=== PATIENT | female | born 1960 | race Caucasian/White ===

== ENCOUNTER 2017-09-04 00:28 | Inpatient (IN) | payer BC, MEDICAID ==
[2017-09-04 00:45] VITALS: BMI 28.3
[2017-09-04] MEDS ORDERED: Albuterol-Ipratrop 3 mg / 0.5 (3 ml) UD IH STA (00:48)
[2017-09-04] MEDS ORDERED: Sodium Chloride 0.9% 1,000 ML IV STA ×2 (00:48→03:09)
[2017-09-04] MEDS ORDERED: Magnesium Sulfate 2 GM in Sodium Chloride 0.9% 100 ML IVPB ONE (00:48)
[2017-09-04] MEDS ORDERED: Albuterol 0.083% Inhal Sol (2.5 mg/3 mL) UD INH STA (00:48)
--- NOTE | 2017-09-04 01:01 | ED PDOC ---
Arrival/HPI - General Chief Complaint: Shortness Of Breath Time Seen by Provider: 09/04/17 00:40 Historian: Patient - History of Present Illness Narrative History of Present Illness (Text): 09/04/17 00:53 A 57 year old female, whose past medical history includes asthma, presents to the emergency department complaining of 1 week duration shortness of breath. The patient states that she has been using her Albuterol inhaler, but it has not relieved her symptoms. She notes that she has been coughing with associated white sputum. The patient denies fevers, chills, headache, dizziness, chest pain , dyspnea on exertion, cough, abdominal pain, nausea, vomiting, diarrhea, back pain, neck pain, urinary/bowel changes, or any other complaint. PMD: Dr. Islas Time/Duration: 1 week Symptom Onset: Sudden Symptom Course: Unchanged Activities at Onset: Rest, Light Context: Home Past Medical History - Provider Review Nursing Documentation Reviewed: Yes - Infectious Disease Hx of Infectious Diseases: None - Tetanus Immunization Tetanus Immunization: Unknown - Past Medical History Past Medical History: No Previous - Cardiac Hx Cardiac Disorders: No - Pulmonary Hx Respiratory Disorders: Yes Hx Asthma: Yes Hx Bronchitis: Yes (05-12-16) - Neurological Hx Neurological Disorder: No - HEENT Hx HEENT Disorder: Yes (WEARS RX GLASSES) - Renal Hx Renal Disorder: No - Endocrine/Metabolic Hx Endocrine Disorders: No - Hematological/Oncological Hx Blood Disorders: No - Integumentary Hx Dermatological Disorder: No - Musculoskeletal/Rheumatological Hx Musculoskeletal Disorders: No Hx Falls: No - Gastrointestinal Hx Gastrointestinal Disorders: Yes Hx Diverticulitis: Yes Hx Gastroesophageal Reflux: Yes (CHOLECYSTECTOMY) - Genitourinary/Gynecological Hx Genitourinary Disorders: Yes (HYSTERECTOMY) - Psychiatric Hx Psychophysiologic Disorder: Yes (SMOKES 2 CIG A DAY) Hx Emotional Abuse: No Hx Physical Abuse: No Hx Substance Use: No - Surgical History Hx Appendectomy: Yes Hx Cholecystectomy: Yes Hx Hysterectomy: Yes - Anesthesia Hx Anesthesia Reactions: No Hx Malignant Hyperthermia: No - Suicidal Assessment Feels Threatened In Home Enviroment: No Family/Social History - Physician Review Nursing Documentation Reviewed: Yes Family/Social History: No Known Family HX Smoking Status: Current Some Days Smoker Hx Alcohol Use: No Hx Substance Use: No Allergies/Home Meds Allergies/Adverse Reactions: Allergies No Known Allergies Allergy (Verified 09/04/17 00:41) Home Medications: Home Meds Medication Instructions Recorded Confirmed Albuterol HFA [Ventolin HFA 90 1 puff IH Q6 PRN 09/04/17 09/04/17 mcg/actuation (8 g)] No Known Home Med 09/04/17 09/04/17 Review of Systems - Physician Review All systems were reviewed & negative as marked: Yes - Review of Systems Constitutional: absent: Fevers, Night Sweats Respiratory: SOB, Cough, Sputum Cardiovascular: absent: Chest Pain, GONSALEZ Gastrointestinal: absent: Abdominal Pain, Constipation, Diarrhea, Nausea, Vomiting Genitourinary Female: absent: Urine Output Changes Musculoskeletal: absent: Back Pain, Neck Pain Neurological: absent: Headache, Dizziness Physical Exam Vital Signs Reviewed: Yes Vital Signs Temp Pulse Resp BP Pulse Ox 09/04/17 04:22 107 H 18 134/71 100 09/04/17 03:03 109 H 18 142/75 100 09/04/17 02:00 18 98 09/04/17 00:45 98 F 117 H 22 165/91 H 96 Temperature: Afebrile Blood Pressure: Hypertensive Pulse: Tachycardic Respiratory Rate: Normal Appearance: Positive for: Well-Appearing, Non-Toxic, Comfortable Pain Distress: None Mental Status: Positive for: Alert and Oriented X 3 - Systems Exam Head: Present: Atraumatic, Normocephalic Pupils: Present: PERRL Extroacular Muscles: Present: EOMI Conjunctiva: Present: Normal Mouth: Present: Moist Mucous Membranes Pharnyx: Present: Muffled/Hoarse Voice Neck: Present: Normal Range of Motion Respiratory/Chest: Present: Wheezes Cardiovascular: Present: Regular Rate and Rhythm, Normal S1, S2. No: Murmurs Abdomen: Present: Normal Bowel Sounds. No: Tenderness, Distention, Peritoneal Signs Back: Present: Normal Inspection Upper Extremity: Present: Normal Inspection. No: Cyanosis, Edema Lower Extremity: Present: Normal Inspection. No: Edema Neurological: Present: GCS=15, CN II-XII Intact, Speech Normal Skin: Present: Warm, Dry, Normal Color. No: Rashes Psychiatric: Present: Alert, Oriented x 3, Normal Insight, Normal Concentration Medical Decision Making ED Course and Treatment: 09/04/17 01:02 Impression: A 57 year old female presents to the emergency department complaining of shortness of breath and cough for 1 week. Plan: -- Chest X-ray -- Blood Culture -- Labs -- Albuterol, Duoneb, Magnesium Sulfate, SOLU-Medrol, IV Fluids -- Reassess and disposition Progress Notes: EKG: Ordered, reviewed, and independently interpreted the EKG. Rate : 109 BPM Rhythm : Sinus Tachycardia - Lab Interpretations Lab Results: 09/04/17 02:00 09/04/17 02:00 Lab Results 09/04/17 02:10: Influenza Typ A,B (EIA) Negative for flu a/b 09/04/17 02:00: Sodium 141, Chloride 102, Potassium 3.6, Carbon Dioxide 24, Anion Gap 19, BUN 13, Creatinine 1.0, Est GFR ( Amer) > 60, Est GFR (Non- Af Amer) 57, Random Glucose 117 H, Calcium 10.1, Total Bilirubin 0.6, AST 30, ALT 43, Alkaline Phosphatase 95, Lactate Dehydrogenase 764 H, Total Creatine Kinase 437 H, CK-MB (CK-2) 3.1, CK-MB (CK-2) % Cancelled, Troponin I < 0.01, Total Protein 7.8, Albumin 4.6, Globulin 3.2, Albumin/Globulin Ratio 1.4 09/04/17 02:00: pO2 58 H, VBG pH 7.27 L, VBG pCO2 55.0, VBG HCO3 25.3, VBG Total CO2 27.0, VBG O2 Sat (Calc) 88.8 H, VBG Base Excess -2.5 L, VBG Potassium 3.9, Sodium 138.0, Chloride 102.0, Glucose 123 H, Lactate 2.1, FiO2 21.0, Venous Blood Potassium 3.9 09/04/17 02:00: WBC 11.4 H D, RBC 4.68, Hgb 12.6, Hct 39.2, MCV 83.8, MCH 26.9, MCHC 32.1, RDW 16.0 H, Plt Count 269, MPV 10.8, Gran % 72.9 H, Lymph % (Auto) 16.3 L, Tillman % (Auto) 5.2, Eos % (Auto) 5.2 H, Baso % (Auto) 0.4, Gran # 8.29 H , Lymph # (Auto) 1.9, Tillman # (Auto) 0.6, Eos # (Auto) 0.6, Baso # (Auto) 0.04 I have reviewed the lab results: Yes - RAD Interpretation Radiology Orders: 09/04/17 00:48 CHEST TWO VIEWS (PA/LAT) [RAD] Stat - Medication Orders Current Medication Orders: Albuterol Sulfate (Albuterol 0.083% Inhal Hattie (2.5 Mg/3 Ml) Ud) 2.5 mg IH Q2H KLAUDIA Last Admin: 09/04/17 04:12 Dose: 2.5 mg Sodium Chloride (Sodium Chloride 0.9%) 1,000 mls @ 100 mls/hr IV .Q10H KLAUDIA Discontinued Medications Albuterol Sulfate (Albuterol 0.083% Inhal Hattie (2.5 Mg/3 Ml) Ud) 5 mg INH STAT STA Stop: 09/04/17 00:49 Last Admin: 09/04/17 01:00 Dose: 5 mg Albuterol/Ipratropium (Duoneb 3 Mg/0.5 Mg (3 Ml) Ud) 3 ml IH STAT STA Stop: 09/04/17 00:49 Last Admin: 09/04/17 01:00 Dose: 3 ml Magnesium Sulfate 2 gm/ Sodium (Chloride) 104 mls @ 102 mls/hr IVPB ONCE ONE Stop: 09/04/17 01:49 Last Admin: 09/04/17 02:00 Dose: 102 mls/hr eMAR Start Stop Document 09/04/17 02:00 AD (Rec: 09/04/17 02:23 AD [id number]) Intravenous Solution Start Date 09/04/17 Start Time 02:00 Sodium Chloride (Sodium Chloride 0.9%) 1,000 mls @ 999 mls/hr IV .Q1H1M STA Stop: 09/04/17 01:48 Last Admin: 09/04/17 02:00 Dose: 999 mls/hr eMAR Start Stop Document 09/04/17 02:00 AD (Rec: 09/04/17 02:23 AD [id number]) Intravenous Solution Start Date 09/04/17 Start Time 02:00 Ceftriaxone Sodium (Rocephin 1 Gram Ivpb) 1 gm in 100 mls @ 200 mls/hr IVPB STAT STA PRN Reason: Protocol Stop: 09/04/17 03:38 Last Admin: 09/04/17 03:30 Dose: 200 mls/hr eMAR Start Stop Document 09/04/17 03:30 AD (Rec: 09/04/17 03:34 AD [id number]) Intravenous Solution Start Date 09/04/17 Start Time 03:30 Sodium Chloride (Sodium Chloride 0.9%) 1,000 mls @ 999 mls/hr IV .Q1H1M STA Stop: 09/04/17 04:09 Last Admin: 09/04/17 03:34 Dose: 999 mls/hr eMAR Start Stop Document 09/04/17 03:34 AD (Rec: 09/04/17 03:34 AD [id number]) Intravenous Solution Start Date 09/04/17 Start Time 03:30 Azithromycin (Zithromax 500mg In Ns) 500 mg in 250 mls @ 167 mls/hr IVPB STAT STA PRN Reason: Protocol Stop: 09/04/17 04:38 Last Admin: 09/04/17 04:06 Dose: 167 mls/hr eMAR Start Stop Document 09/04/17 04:06 AD (Rec: 09/04/17 04:07 AD [id number]) Intravenous Solution Start Date 09/04/17 Start Time 04:07 Methylprednisolone (Solu-Medrol) 125 mg IVP STAT STA Stop: 09/04/17 00:49 Last Admin: 09/04/17 02:00 Dose: 125 mg IVP Administration Document 09/04/17 02:00 AD (Rec: 09/04/17 02:24 AD [id number]) Charges for Administration # of IVP Administrations 1 Oxycodone/Acetaminophen (Percocet 5/325 Mg Tab) 1 tab PO STAT STA Stop: 09/04/17 02:09 Last Admin: 09/04/17 02:24 Dose: 1 tab MAR Pain Assessment Document 09/04/17 02:24 AD (Rec: 09/04/17 02:24 AD [id number]) Pain Reassessment Is this a pain reassessment? No Presence of Pain Presence of Pain Yes Description Intensity of Pain at present 7 Pain Behavior Facial Grimacing - PA / JOB PLACEMENT SPECIALIST / Resident Statement MD/DO has reviewed & agrees with the documentation as recorded. - Scribe Statement The provider has reviewed the documentation as recorded by the Mike Wilson Provider Scribe Attestation: All medical record entries made by the Scribe were at my direction and personally dictated by me. I have reviewed the chart and agree that the record accurately reflects my personal performance of the history, physical exam, medical decision making, and the department course for this patient. I have also personally directed, reviewed, and agree with the discharge instructions and disposition. Disposition/Present on Arrival - Present on Arrival Any Indicators Present on Arrival: No History of DVT/PE: No History of Uncontrolled Diabetes: No Urinary Catheter: No History of Decub. Ulcer: No History Surgical Site Infection Following: None - Disposition Have Diagnosis and Disposition been Completed?: Yes Diagnosis: Sepsis, Pneumonia, Bronchospasm with bronchitis, acute Disposition: HOSPITALIZED Disposition Time: 03:00 Patient Plan: Admission Condition: IMPROVED
[2017-09-04] MEDS ORDERED: Oxycodone/Acetaminophen 5/325 mg Tab PO STA (02:08)
[2017-09-04 02:50] LABS: VENOUS BLOOD GAS BASE EXCESS -2.5 mmol/L (0.0-2.0); VENOUS BLOOD GAS PO2 58 mm/Hg (30-55); VENOUS BLOOD PH 7.27 (7.32-7.43)
[2017-09-04 03:06] LABS: ALB/GLOB RATIO 1.4 (1.1-1.8); ALBUMIN 4.6 g/dL (3.0-4.8); ALT/SGPT 43 U/L (7-56); AST/SGOT 30 U/L (14-36); BLOOD UREA NITROGEN 13 mg/dL (7-21); CALCIUM 10.1 mg/dL (8.4-10.5); GFR AFRICAN-AMERICAN > 60; GFR NON-AFRICAN AMERICAN 57
[2017-09-04] MEDS ORDERED: cefTRIAXone 1 gm 1 GM/100 ML BAG IVPB STA (03:09)
[2017-09-04] MEDS ORDERED: Azithromycin 500MG/NS 250ml 500 MG/250 ML BAG IVPB STA (03:09)
[2017-09-04 03:11] LABS: TROPONIN I < 0.01 ng/mL
[2017-09-04 03:22] LABS: BASO # 0.04 K/mm3 (0.0-2.0); BASO % 0.4 % (0.0-3.0); EOS # 0.6 (0.0-0.7); EOS % 5.2 % (1.5-5.0); GRAN # 8.29 (1.4-6.5); GRAN % 72.9 % (50.0-68.0); HEMOGLOBIN 12.6 g/dL (12.0-16.0); LYMPH # 1.9 (1.2-3.4); LYMPH % 16.3 % (22.0-35.0); MEAN CELL VOLUME 83.8 fl (80.0-105.0); MEAN CORPUSCULAR HEMOGLOBIN 26.9 pg (25.0-35.0); MEAN CORPUSCULAR HGB CONC 32.1 g/dl (31.0-37.0); MEAN PLATELET VOLUME 10.8 fl (7.0-11.0); MONO # 0.6 (0.1-0.6); MONO % 5.2 % (1.0-6.0); RBC 4.68 10^6/uL (3.5-6.1); WHITE BLOOD COUNT 11.4 10^3/ul (4.5-11.0)
[2017-09-04 03:23] LABS: CK-MB 3.1 ng/mL (0.0-3.6)
[2017-09-04] MEDS: Albuterol 0.083% Inhal Sol (2.5 mg/3 mL) UD IH SCH ×3 (04:12→10:22)
[2017-09-04] MEDS ORDERED: Sodium Chloride 0.9% 1,000 ML IV SCH (04:15)
[2017-09-04 04:32] LABS: PROTHROMBIN TIME 13.4 SECONDS (9.4-12.5)
[2017-09-04 04:33] LABS: INR 1.16 (0.93-1.08)
[2017-09-04] MEDS ORDERED: Oxycodone/Acetaminophen 5/325 mg Tab PO PRN (08:08)
[2017-09-04 08:35] LABS: VENOUS BLOOD GAS BASE EXCESS -2.6 mmol/L (0.0-2.0); VENOUS BLOOD GAS PO2 175 mm/Hg (30-55); VENOUS BLOOD PH 7.34 (7.32-7.43)
--- NOTE | 2017-09-04 08:43 | RAD ---
HISTORY: cough COMPARISON: No prior. TECHNIQUE: Chest PA and lateral FINDINGS: LUNGS: No active pulmonary disease. PLEURA: No significant pleural effusion identified. No pneumothorax apparent. CARDIOVASCULAR: Normal. OSSEOUS STRUCTURES: No significant abnormalities. VISUALIZED UPPER ABDOMEN: Normal. OTHER FINDINGS: None. IMPRESSION: No active disease.
[2017-09-04] MEDS ORDERED: Albuterol 0.083% Inhal Sol (2.5 mg/3 mL) UD INH PRN (11:07)
[2017-09-04] MEDS: MethylPREDNISolone 40 mg Vial IVP SCH ×2 (13:30→21:19)
[2017-09-04] MEDS ORDERED: Albuterol-Ipratrop 3 mg / 0.5 (3 ml) UD IH SCH (14:00)
[2017-09-04] MEDS: guaiFENesin-Codeine 100-10mg/5ml Syrup (5 ml) UD PO PRN (18:20)
[2017-09-04] MEDS: Albuterol-Ipratrop 3 mg / 0.5 (3 ml) UD IH PRN ×2 (18:30→21:22)
--- NOTE | 2017-09-04 23:47 | CARD ---
APPROVED REPORT EKG Measurement Heart [id number] <Conclusion> Sinus tachycardia Otherwise normal ECG
[2017-09-05] MEDS: Pantoprazole 40 mg EC Tab PO SCH (05:16)
[2017-09-05] MEDS: MethylPREDNISolone 40 mg Vial IVP SCH ×3 (05:16→22:26)
--- NOTE | 2017-09-05 06:28 | HP ---
HISTORY OF PRESENT ILLNESS: The patient is a 57-year-old came to Emergency Room because of increasing cough, congestion, shortness of breath. Patient states she had been sick for almost a week, but got worse and she could not catch her breath and she has been having low-grade fever. Denies any nausea or vomiting. Patient states she has been using her nebulizer very frequently with no significant relief. Complaint of productive cough for almost a week. Patient did have fever or chills earlier, but denies any fever or chills now. PAST MEDICAL HISTORY: Significant for asthma. PAST SURGICAL HISTORY: Significant for cholecystectomy, history of peptic ulcer disease, history of hysterectomy. SOCIAL HISTORY: She is , lives with her . She does have history of smoking cigar. She uses one cigar in holiday. MEDICATIONS AT HOME: She uses inhalers. Otherwise, she is not on any medication. REVIEW OF SYSTEMS: Significant for cough, congestion and shortness of breath. PHYSICAL EXAMINATION: GENERAL: She is awake, alert and oriented, communicative. VITAL SIGNS: She is afebrile, pulse 104, respirations 18, blood pressure 150/96. LUNGS: Soft rhonchi bilaterally, diffuse. HEART: S1, S2 audible. ABDOMEN: Soft, nontender. No rebound. No guarding. NEUROLOGIC: The patient is awake and alert, able to communicate. LABORATORY DATA: WBC is 11.4, hemoglobin 12.6, hematocrit 39, platelet of 269,000. PT 13.4, INR 1.16. Chemistry: Sodium 141, potassium 3.6, chloride 102, CO2 of 24, BUN 13, creatinine 1.0, blood sugar 117, CPK 437. Flu test is negative. ASSESSMENT: 1. Asthma exacerbation. 2. Asthmatic bronchitis 3. Tachycardia. PLAN: Discontinue her DuoNeb and start her on Xopenex since it is causing her tachycardia and jitteriness. We will monitor her respiratory status closely. We will follow up in the morning. Abhi Islas MD
[2017-09-05] MEDS: Levalbuterol 1.25 MG/3 ML Inhal Soln UD IH SCH ×2 (07:23→13:15)
--- NOTE | 2017-09-05 07:51 | CON ---
DATE: 09/04/2017 REFERRING PHYSICIAN: Dr. Islas. REASON FOR CONSULT: Cough, shortness of breath, history of chronic lung disease. HISTORY OF PRESENT ILLNESS: This is a 57-year-old female with past medical history significant for chronic obstructive lung disease; history of diverticulitis in the past, still on and off; occasionally smokes, comes into ER with cough and shortness of breath. In the ER, received IV and inhaled bronchodilator with some benefit of persistent symptoms. She was admitted, presently lying in the bed, has cough and shortness of breath. No hemoptysis. No hematemesis. No hematuria. No diarrhea. No leg pain or leg swelling. Admits to have loud snoring, daytime sleepy and tired. No nausea. No vomiting. No dysuria. PAST MEDICAL HISTORY: Chronic obstructive lung disease, history of diverticulitis, history of cholecystectomy. FAMILY HISTORY: No significant cardiopulmonary disease reported. SOCIAL HISTORY: Occasionally still smokes, denying any alcohol use. ALLERGIES: NONE KNOWN. MEDICATIONS: She is on albuterol and Atrovent nebulizer q. hour p.r.n. and q.6 hours round the clock, also on Percocet 5/325 one tablet q. 6 hours p.r.n. She is receiving Robitussin with Codeine 5 mL q.4 hours p.r.n., Rocephin 1 g IV daily, Singulair 10 mg daily, IV fluid normal saline 100 mL per hour, Solu-Medrol 40 mg q. hours, Xopenex inhaled q. 8 hours round the clock and Zithromax 500 mg daily. REVIEW OF SYSTEMS: No headache. No rhinitis. Admitted to have snoring, daytime sleepy and tired, cough, shortness of breath, wheezing. No nausea. No vomiting. No diarrhea. No leg pain or leg swelling. PHYSICAL EXAMINATION GENERAL: Lying in the bed, sleepy, arousable. VITAL SIGNS: Temperature is 98, heart rate is 104, respiratory rate is 20, blood pressure 150/96. Pulse ox of 92% on 2 L nasal cannula. HEENT: Small oral cavity. Crowded airway. Maxillary sinus, no tenderness. NECK: Supple. No JVD. LUNGS: Have prolonged expiratory phase with wheezing. HEART: S1 and S2. ABDOMEN: Soft, nontender. No organomegaly. EXTREMITIES: There is no edema. NEUROLOGIC: Sleepy, arousable. Follows simple commands. LABORATORY DATA: Shows hemoglobin 12.6, hematocrit 39.2, WBC 11.4, platelets 269,000. INR 1.16. VBG showed pH 7.34, pCO2 is 43, O2 175. Sodium 141, potassium 3.6, chloride 102, bicarbonate 24, BUN 13, creatinine 1.0, glucose 117 and calcium 10.1. AST 30, ALT 43 and alkaline phosphatase is 95. LDH 764. Troponin 0.01. Albumin is 4.6. Serology testing shows influenza A and B is negative. Chest x-ray done in the ER shows no active pulmonary disease. IMPRESSION AND PLAN: Exacerbation of chronic obstructive lung disease, may have a component of sleep apnea. Patient is urged to stop smoking. In old CAT scan, she had some scarring in the both lung navarro. Also, has a hiatal hernia. She has some scattered calcification consistent with prior exposure to granulomatous disease. Once she is improved, may not be a bad idea to do quantitative TB Gold test to assure her; she does not have a latent tuberculosis especially because of her asthma need of use of steroids. We will suggest getting full PFT upon discharge as outpatient. We will also suggest sleep study as outpatient. Gastric prophylaxis and deep venous thrombosis prophylaxis. Thank you and we will follow with you. Delicia Pace MD
[2017-09-05] MEDS: Enoxaparin 40 mg Syringe SC SCH (10:31)
[2017-09-05] MEDS: Azithromycin 500MG/NS 250ml 500 MG/250 ML BAG IVPB SCH (10:32)
[2017-09-05] MEDS: cefTRIAXone 1 gm 1 GM/100 ML BAG IVPB SCH (10:32)
--- NOTE | 2017-09-05 15:13 | PN ---
DATE: REFERRING PHYSICIAN: Dr. Islas. SUBJECTIVE: She is lying in the bed, head at 45 degrees. Night was unremarkable. Feels a little better. Still have cough, clear sputum. No nausea. No vomiting. No diarrhea. No leg pain, leg swelling. OBJECTIVE GENERAL: In no acute distress. VITAL SIGNS: Temperature is 98, heart rate is 94, respiratory rate is 18, blood pressure 124/73, pulse ox 97% on room air. HEENT: Moist mucous membranes. Small oral cavity. Crowded airway. Mallampati score is IV. NECK: Supple, no JVD. LUNGS: Has scattered rhonchi. No wheezing. HEART: S1, S2. ABDOMEN: Soft, nontender. No organomegaly. EXTREMITIES: No edema. NEUROLOGIC: Awake, alert. Follows simple commands. MEDICATIONS: She is on albuterol and Atrovent nebulizer q. 2 hours p.r.n. Also, Lovenox 40 mg subQ daily, Percocet 5/325 mg 1 tablet q. 6 hours p.r.n., Protonix 40 mg daily, Robitussin with Codeine 5 mL q. 4 hours p.r.n., Rocephin 1 g IV daily, Singulair 10 mg daily, IV fluids normal saline 100 mL/hour,Solu-Medrol 40 mg q.8 hours, Xopenex inhaled 1.25 mg 3 times daily round the clock, Zithromax 500 mg daily. LABORATORY DATA: Reviewed. No new lab is available since yesterday. Microbiology: Blood cultures have been negative so far. IMPRESSION AND PLAN: Exacerbation of chronic obstructive lung disease, there may be a component of sleep apnea syndrome with a muscular-type chest pain, probably secondary to coughing. From pulmonary point of view, continue IV and inhaled bronchodilators, continue antibiotics. Recommended to get out of bed to chair. Outpatient sleep study, pulmonary function tests. Had some splenic granuloma suggesting old disease. TB Gold test. Thank you and we will follow with you. Delicia Pace MD
--- NOTE | 2017-09-05 20:16 | CT ---
EXAM: CT Chest Without Intravenous Contrast CLINICAL HISTORY: 57 years old, female; Signs and symptoms; Shortness of breath; Additional info: SOB TECHNIQUE: Axial computed tomography images of the chest without intravenous contrast. All CT scans at this facility use one or more dose reduction techniques, viz.: automated exposure control; ma/kV adjustment per patient size (including targeted exams where dose is matched to indication; i.e. head); or iterative reconstruction technique. Coronal and sagittal reformatted images were created and reviewed. COMPARISON: CT - CHEST W/O CONTRAST 2016-05-13 13:57 FINDINGS: Lungs: Minimal atelectasis/scarring. Few scattered mild groundglass opacities, predominantly right middle lobe. No consolidation. Few calcified granulomas. Pleural space: No pneumothorax. No significant effusion. Heart: No cardiomegaly. No significant pericardial effusion. Mediastinum: Large hiatal hernia. Bones/joints: No acute fracture. Soft tissues: Small ventral hernia containing fat, incompletely imaged. Vasculature: Minimal atherosclerotic disease. No aneurysm. Lymph nodes: Calcified hilar lymph nodes. Gallbladder and bile ducts: Cholecystectomy. Spleen: Several splenic calcifications. Stomach and bowel: Colonic diverticula. Upper abdomen: Surgical clips within left upper quadrant. IMPRESSION: 1. Groundglass opacities, nonspecific. DDX: Pneumonia, pulmonary edema, interstitial lung disease, pneumonitis. Clinical correlation and follow up are recommended. 2. Incidental/non-acute findings are described above.
--- NOTE | 2017-09-05 21:14 | PN ---
DATE: SUBJECTIVE: The patient is a 57-year-old, seen and examined, still has cough, congestion and wheezing. States that there is no significant relief. PHYSICAL EXAMINATION VITAL SIGNS: She is afebrile, pulse 94, respirations 18 and blood pressure 124/73. LUNGS: Bilateral soft rhonchi, diffuse. HEART: S1 and S2 audible. ABDOMEN: Soft and nontender. No rebound. No guarding. NEUROLOGIC: She is awake, alert and oriented, communicative. Moves all extremities. LABORATORY DATA: Blood cultures are negative. ASSESSMENT: 1. Asthmatic bronchitis. 2. Bronchospasm. 3. Chronic obstructive pulmonary disease exacerbation. PLAN: Currently, the patient is on IV antibiotics. She is on Singulair. She is getting IV steroid. I will request Dr. Hernández to evaluate the patient. Since her bronchospasm is not improving, I ordered for CT scan of the chest to compare and in the meantime we will continue on current medications. Abhi Islas MD
[2017-09-06] MEDS: Pantoprazole 40 mg EC Tab PO SCH (06:10)
[2017-09-06] MEDS: MethylPREDNISolone 40 mg Vial IVP SCH ×3 (06:10→21:13)
[2017-09-06] MEDS: Levalbuterol 1.25 MG/3 ML Inhal Soln UD IH SCH ×4 (08:16→19:36)
[2017-09-06] MEDS: cefTRIAXone 1 gm 1 GM/100 ML BAG IVPB SCH (09:36)
[2017-09-06] MEDS: Enoxaparin 40 mg Syringe SC SCH (09:36)
[2017-09-06] MEDS: guaiFENesin-Codeine 100-10mg/5ml Syrup (5 ml) UD PO PRN (09:36)
[2017-09-06] MEDS: Azithromycin 500MG/NS 250ml 500 MG/250 ML BAG IVPB SCH (09:37)
[2017-09-06] MEDS ORDERED: Sodium Chloride 0.9% 1,000 ML IV SCH (18:50)
--- NOTE | 2017-09-06 22:48 | CON ---
DATE: 09/06/2017 LOCATION: The patient was seen earlier today in room 566, bed 1. CHIEF COMPLAINT: Weakness times several days. 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 Brandon Bernard and he states that the patient is being complaining of shortness of breath and weakness and coughing with whitish sputum. No fevers. No chills. No nausea or vomiting. No abdominal pain or diarrhea or constipation. PAST MEDICAL HISTORY: Significant for asthma and diverticulitis. PAST SURGICAL HISTORY: Significant for hysterectomy in 2011, cholecystectomy and colon resection in 2013. ALLERGIES: THE PATIENT HAS NO KNOWN ALLERGIES. MEDICATIONS AT HOME: Include the patient to be on inhaler. PHYSICAL EXAMINATION: VITAL SIGNS: On exam; the patient is in bed with a temperature of 97, heart rate of 95, it was up to 117; blood pressure is 140/60; respiratory rate of 18, it was up to 22. HEENT: Unremarkable. NECK: Supple. LUNGS: Decreased breath sounds. HEART: Normal S1 and S2. ABDOMEN: Soft, nontender. No organomegaly. No rebound or guarding. No masses. LABORATORY DATA: Reveals a white count of 11,400, hemoglobin of 12, platelets of 269 and coagulation is noted. Chemistries reveal a BUN of 13, creatinine of 1.0. LDH is noted and influenza is negative. Microbiology reveals the blood cultures are no growth. Patient had a chest x-ray with no active disease. Patient had a CT scan of the chest. Ground glass opacity is not specific, differential diagnosis of pneumonia, pulmonary edema and interstitial lung disease, pneumonitis. This was read by . Dr. Pace's progress note from yesterday is reviewed and consultation is reviewed, Dr. Islas's H and P is reviewed and patient is currently on ceftriaxone and azithromycin and patient did have a QuantiFERON test in 2012, which was negative and pathology report from 2013 of the appendix, omentum and colon, diverticulosis and acute diverticulitis and peridiverticular abscess noted. No granuloma is mentioned and as for acid test was done, which is negative at that time. Patient also had an HIV test done in April, which is negative. ASSESSMENT AND PLAN: She is a 57-year-old female with history of diverticulitis, asthma and a calcified lesion on the chest, CAT scan in the past with a negative QuantiFERON. In the past; the patient did have a calcified hilar lymph nodes, negative QuantiFERON, now presenting with shortness of breath and cough and systemic inflammatory response syndrome with secondary to exacerbation of asthma and a calcified lymph node in the hilum. Negative QuantiFERON in the past. Patient has worked in a half-way. 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 We will treat current therapy for ceftriaxone and azithromycin with pending ____ final culture results and switch to p.o. to complete therapy. We will follow closely with you. Matt Hernández MD
--- NOTE | 2017-09-07 00:41 | PN ---
DATE: 09/06/2017 SUBJECTIVE: The patient has no complaints of any chest pain, no shortness of breath, no headaches. PHYSICAL EXAMINATION: VITAL SIGNS: Temperature is 97.9, pulse of 93, blood pressure is 175/105, respirations 16. GENERAL: The patient is lying in bed, flat, comfortable. HEENT: No oral lesion. Anicteric sclerae. Moist mucosa. NECK: No JVD, adenopathy, or thyromegaly. CARDIOVASCULAR: S1 and S2, regular. No murmurs, rubs, or gallops. LUNGS: Clear to auscultation bilaterally. No wheeze, rales, or rhonchi. ABDOMEN: Bowel sounds are positive, soft, nontender and nondistended. EXTREMITIES: no cyanosis, clubbing or edema. LABS: Labs have been reviewed. CT of the chest done shows ground glass opacity, nonspecific. ASSESSMENT: 1. Acute asthma. 2. Bronchospasm. 3. Acute chronic obstructive pulmonary disease. PLAN: The patient has an abnormal CT of the chest. She is being followed by Pulmonary. She has had Lovenox for DVT prophylaxis. She is going to continue her Percocet for pain. She is on Protonix daily. She is on IV fluids. I will decrease the patient's IV fluids. She is on Solu-Medrol and antibiotics. She is on a heart-healthy diet. We will order blood for tomorrow morning. Sebastien Cortés MD
--- NOTE | 2017-09-07 02:59 | PN ---
DATE: PULMONARY PROGRESS NOTE REFERRING PHYSICIAN: Abhi Islas MD SUBJECTIVE: The patient is sitting on the side of the bed, feels better. Decreased cough. Decreased shortness of breath. No nausea. No vomiting. No diarrhea. No leg pain or leg swelling. OBJECTIVE GENERAL: In no acute distress. VITAL SIGNS: Temperature is 98, heart rate is 93, respiratory rate is 16, blood pressure 175/105, pulse ox is 95% on room air. HEENT: Moist mucous membranes. Crowded airway. NECK: Supple, no JVD. LUNGS: Had a few crackles on the left one-third up. HEART: S1 and S2. ABDOMEN: Soft, nontender. No organomegaly. EXTREMITIES: No edema. NEUROLOGIC: Awake, follows simple commands. MEDICATIONS: She is on albuterol 2.5 mg inhaled q. 12 hours p.r.n., Xopenex inhaled q. 8 hours round the clock, Lovenox 40 mg daily, Percocet 5/325 mg one tab q. 6 hours p.r.n., Protonix 40 mg daily, Robitussin with Codeine 5 mL q. 4 hours p.r.n., Rocephin 1 g IV daily, Singulair 10 mg at bedtime, IV fluids normal saline 50 mL/hour, Solu-Medrol 40 mg q. 8 hours, Zithromax 500 mg daily. LABORATORY DATA: Reviewed. There is a CAT scan of the chest done yesterday, shows ground glass opacity showing pneumonitis versus pneumonia/interstitial disease. IMPRESSION AND PLAN: Chronic obstructive lung disease, bilateral pulmonary infiltrate. We will decrease Solu-Medrol to 40 q. 12 hours, continue inhaled bronchodilators, antibiotics, gastric prophylaxis, deep vein thrombosis prophylaxis. Will need followup x-ray to assure the stability of pneumonitis. We will recommend pulmonary function tests as outpatient, sleep study as outpatient. We will get procalcitonin and pro-BNP for tomorrow. Thank you and we will follow with you. Delicia Pace MD
[2017-09-07] MEDS: MethylPREDNISolone 40 mg Vial IVP SCH ×3 (06:08→21:44)
[2017-09-07] MEDS: Pantoprazole 40 mg EC Tab PO SCH (06:08)
[2017-09-07 07:12] LABS: HEMOGLOBIN 10.3 g/dL (12.0-16.0); MEAN CELL VOLUME 82.8 fl (80.0-105.0); MEAN CORPUSCULAR HGB CONC 31.4 g/dl (31.0-37.0); MEAN PLATELET VOLUME 9.6 fl (7.0-11.0); RBC 3.96 10^6/uL (3.5-6.1); RED CELL DISTRIBUTION WIDTH 16.1 % (11.5-14.5); WHITE BLOOD COUNT 13.8 10^3/ul (4.5-11.0)
[2017-09-07] MEDS: Levalbuterol 1.25 MG/3 ML Inhal Soln UD IH SCH ×3 (07:37→19:53)
[2017-09-07 07:38] LABS: ALB/GLOB RATIO 1.4 (1.1-1.8); ALBUMIN 3.7 g/dL (3.0-4.8); ALT/SGPT 28 U/L (7-56); AST/SGOT 24 U/L (14-36); B-TYPE NATRIURETIC PEPTIDE 363 pg/mL (0-450); BLOOD UREA NITROGEN 15 mg/dL (7-21); CALCIUM 9.3 mg/dL (8.4-10.5); GFR AFRICAN-AMERICAN > 60; GFR NON-AFRICAN AMERICAN 57
[2017-09-07] MEDS: Azithromycin 500MG/NS 250ml 500 MG/250 ML BAG IVPB SCH (09:43)
[2017-09-07] MEDS: Enoxaparin 40 mg Syringe SC SCH (09:44)
[2017-09-07] MEDS: cefTRIAXone 1 gm 1 GM/100 ML BAG IVPB SCH (09:44)
--- NOTE | 2017-09-07 19:43 | CP.PCM.PN ---
Subjective - Date & Time of Evaluation Date of Evaluation: 09/07/17 Time of Evaluation: 11:40 - Subjective Subjective: Comfortable, no fevers. Objective - Vital Signs/Intake and Output Vital Signs (last 24 hours): Temp Pulse Resp BP Pulse Ox 99.5 F 77 16 131/79 99 09/07/17 07:30 09/07/17 07:30 09/07/17 07:30 09/07/17 07:30 09/07/17 07:30 Intake and Output: 09/07/17 09/07/17 06:59 18:59 Intake Total 180 Balance 180 - Medications Medications: Current Medications Albuterol Sulfate (Albuterol 0.083% Inhal Hattie (2.5 Mg/3 Ml) Ud) 2.5 mg INH Q2H PRN PRN Reason: Shortness of Breath Albuterol/Ipratropium (Duoneb 3 Mg/0.5 Mg (3 Ml) Ud) 3 ml IH Q2H PRN PRN Reason: Shortness of Breath Last Admin: 09/04/17 21:22 Dose: 3 ml Enoxaparin Sodium (Lovenox) 40 mg SC DAILY KLAUDIA PRN Reason: Protocol Last Admin: 09/06/17 09:36 Dose: 40 mg Guaifenesin/Codeine Phosphate (Robitussin W/Codeine) 5 ml PO Q4H PRN PRN Reason: Cough and congestion Last Admin: 09/06/17 09:36 Dose: 5 ml Azithromycin (Zithromax 500mg In Ns) 500 mg in 250 mls @ 167 mls/hr IVPB DAILY KLAUDIA PRN Reason: Protocol Last Admin: 09/06/17 09:37 Dose: 167 mls/hr Ceftriaxone Sodium (Rocephin 1 Gram Ivpb) 1 gm in 100 mls @ 100 mls/hr IVPB DAILY KLAUDIA PRN Reason: Protocol Stop: 09/09/17 10:59 Last Admin: 09/06/17 09:36 Dose: 100 mls/hr Sodium Chloride (Sodium Chloride 0.9%) 1,000 mls @ 50 mls/hr IV .Q20H KLAUDIA Levalbuterol HCl (Xopenex) 1.25 mg IH TIDRESP KLAUDIA Last Admin: 09/07/17 07:37 Dose: 1.25 mg Methylprednisolone (Solu-Medrol) 40 mg IVP Q8 KLAUDIA Last Admin: 09/07/17 06:08 Dose: 40 mg Montelukast Sodium (Singulair) 10 mg PO HS [facility] Last Admin: 09/06/17 21:13 Dose: 10 mg Pantoprazole Sodium (Protonix Ec Tab) 40 mg PO 0600 [facility] Last Admin: 09/07/17 06:08 Dose: 40 mg - Labs Labs: 09/07/17 06:30 09/07/17 06:30 PT 13.4 SECONDS (9.4-12.5) H 09/04/17 04:00 INR 1.16 (0.93-1.08) H 09/04/17 04:00 - Constitutional Appears: Chronically Ill - Head Exam Head Exam: NORMAL INSPECTION - Respiratory Exam Respiratory Exam: Decreased Breath Sounds - Cardiovascular Exam Cardiovascular Exam: +S1, +S2 - GI/Abdominal Exam GI & Abdominal Exam: Soft. absent: Tenderness Assessment and Plan - Assessment and Plan (Free Text) Plan: Assessment sepsis probably due to community-acquired pneumonitis hysterectomy cholecystectomy peptic ulcer disease history of diverticulitis Plan continue Rocephin and Zithromax day 2; cultures are negative; complete 5-7 days of therapy
--- NOTE | 2017-09-07 22:57 | PN ---
DATE: SUBJECTIVE: The patient is 57 years old, seen and examined sitting in chair, seems to be comfortable, less cough and congestion. Gets short of breath on walking. PHYSICAL EXAMINATION: VITAL SIGNS: She is afebrile, pulse 84, respirations 16, blood pressure 131/79. LUNGS: Bilateral fair airflow. No rhonchi or crackle. HEART: S1, S2 audible. ABDOMEN: Soft, nontender. No rebound. No guarding. NEUROLOGICAL: The patient is awake, alert, oriented, communicative. LABORATORY EXAM: WBC is 13.8, hemoglobin 10.3, hematocrit 32.8, platelet 373. Chemistry: Sodium 143, potassium 3.8, chloride 107, CO2 of 24, BUN 15, creatinine 1.0, blood sugar of 118. Flu test is negative. CT scan of the chest was done that showed ground-glass opacity, nonspecific. ASSESSMENT: 1. Chronic obstructive pulmonary disease exacerbation. 2. Leukocytosis. 3. Hypertension. 4. Bilateral pulmonary infiltrate. 5. Bronchospasm. PLAN: Currently, the patient is on nebulizer treatment. Requesting for Zolpidem for tonight. She is on DVT prophylaxis. She is on Rocephin and Zithromax. We will continue that. Out of bed to chair. Physical Therapy evaluation has been requested. We will reevaluate in a.m. Abhi Islas MD
--- NOTE | 2017-09-07 23:57 | PN ---
DATE: 09/07/2017 PULMONARY PROGRESS NOTE REFERRING PHYSICIAN: Abhi Islas MD. SUBJECTIVE: The patient is sitting on side of the bed. Family at bedside. Night was unremarkable. Feels better. Decreased cough. Still has clear sputum production. No nausea. No vomiting, diarrhea, leg pain, leg swelling. OBJECTIVE: GENERAL: In no acute distress. VITAL SIGNS: Temperature is 98, heart rate is 84, respiratory rate is 16, blood pressure 179/73, pulse ox 98% on room air. HEENT: Moist mucous membrane. Crowded airway. NECK: Supple. No JVD. LUNGS: Have a few crackles and scattered rhonchi. HEART: S1 and S2. ABDOMEN: Soft, nontender. No organomegaly. EXTREMITIES: No edema. NEUROLOGIC: Awake and alert. Follows simple command. MEDICATIONS: She is on albuterol nebulizer q. 2 hours p.r.n., Ambien 10 mg at bedtime, Lovenox 40 mg daily, Protonix 40 mg daily, guaifenesin with codeine q. 4 hours p.r.n., Rocephin 1 g daily, Singulair 10 mg daily, IV fluid normal saline 50 mL/hour, Solu-Medrol 40 mg q. 8 hours, Xopenex inhaled q. 8 hours, Zithromax 500 mg daily. LABORATORY DATA: Shows hemoglobin 10.3, hematocrit 32.8, WBC 13.8, platelet is 373. Sodium 143, potassium 3.8, chloride 107, bicarbonate 24, BUN 15, creatinine 1.0, glucose 118, calcium is 9.3, AST 24, ALT 28, alk phos is 66. Albumin is 3.7. Procalcitonin is 0.05. Microbiology: Blood culture has been negative. IMPRESSION AND PLAN: Chronic obstructive lung disease, bilateral pulmonary infiltrate, may have sleep apnea syndrome. Pulmonary point of view, continue IV and inhaled bronchodilator, antibiotics, gastric prophylaxis, deep venous thrombosis prophylaxis. Once improved, discharge planning. Outpatient PFT, followup CT to assure the stability of interstitial and nodular infiltrate. Thank you and we will follow with you. Delicia Pace MD [facility] # [id number]
[2017-09-08] MEDS: MethylPREDNISolone 40 mg Vial IVP SCH ×3 (06:04→21:32)
[2017-09-08] MEDS: Pantoprazole 40 mg EC Tab PO SCH (06:04)
[2017-09-08] MEDS: Levalbuterol 1.25 MG/3 ML Inhal Soln UD IH SCH ×4 (07:30→19:30)
[2017-09-08] MEDS: Enoxaparin 40 mg Syringe SC SCH (09:16)
[2017-09-08] MEDS: Azithromycin 500MG/NS 250ml 500 MG/250 ML BAG IVPB SCH (09:16)
[2017-09-08] MEDS: cefTRIAXone 1 gm 1 GM/100 ML BAG IVPB SCH (09:20)
--- NOTE | 2017-09-08 18:46 | PN ---
DATE: SUBJECTIVE: Patient is 57 years old. Seen and examined. Still complains of shortness of breath, on minimal exertion complain of shortness of breath, complain of wheezing. PHYSICAL EXAMINATION: VITAL SIGNS: She is afebrile, pulse 73, respirations 18, blood pressure 154/83. LUNGS: Bilateral harsh rhonchi. Diffuse bilateral. HEART: S1, S2 audible. ABDOMEN: Soft, nontender. No rebound. No guarding. NEUROLOGIC: She is awake, alert, oriented. Able to communicate. Able to ambulate. EXTREMITIES: Bilateral leg no edema. LABORATORY DATA: Procalcitonin is 0.05. ASSESSMENT: 1. Chronic obstructive pulmonary disease exacerbation. 2. Bronchospasm. 3. Exertional hypoxia. 4. Hypertension. PLAN: I am going to order for echocardiogram. We will continue on current antibiotics. Continue on steroids. Currently she is getting methylprednisolone 40 mg q.8. I will discontinue IV fluid. Order for echocardiogram to see LV function. Rule out pulmonary hypertension. Abhi Islas MD
--- NOTE | 2017-09-09 01:17 | PN ---
PULMONARY PROGRESS NOTE DATE: 09/08/2017 REFERRING PHYSICIAN: Abhi Islas MD SUBJECTIVE: She is sitting at the side of the bed. Feels better, but still having cough, unable to clear pulmonary secretions. There is no hemoptysis, no hematemesis, no hematuria, no diarrhea reported. PHYSICAL EXAMINATION: GENERAL: In no acute distress. VITAL SIGNS: Temperature is 98, heart rate 73, respiratory rate is 18, blood pressure 154/83, pulse ox 97% on room air. HEENT: Moist mucous membranes. No ulcer or thrush noted. NECK: Supple, no JVD. LUNGS: Have few crackles on the left lung. Scattered rhonchi. HEART: S1, S2. ABDOMEN: Soft, nontender. No organomegaly. EXTREMITIES: No edema. NEUROLOGIC: Awake, alert. Follows simple commands. MEDICATIONS: She is on albuterol/Atrovent nebulizer q. 12 hours p.r.n., Ambien 10 mg at bedtime, Lovenox 40 mg daily, Protonix 40 mg daily, guaifenesin with codeine 5 mL q. 4 hours p.r.n., Rocephin 1 gm daily, Singulair 10 mg daily, Solu-Medrol 40 mg q. 8 hours, Xopenex inhaled three times a day, Zithromax 500 mg daily. LABORATORY DATA: Reviewed. Procalcitonin yesterday was 0.05. Influenza has been negative. Blood culture has been negative. IMPRESSION AND PLAN: Chronic obstructive lung disease, bilateral pulmonary infiltrates. There may be a component of sleep apnea syndrome. Dr. Islas's note reviewed. Echocardiogram is being ordered. Procalcitonin is negative. Seen by Infectious Diseases. I clinically feel it is probably just mucus plugging. She has hard time clearing it. Continue intravenous and inhaled bronchodilator. Continue mucolytic agent. If symptom does not improve, we will consider bronchoscopy. If she improves, she can go home with steroids and bronchodilator and get a followup CT and pulmonary function test as outpatient. Thank you, we will follow with you. Delicia Pace MD
--- NOTE | 2017-09-09 03:42 | PN ---
DATE: SUBJECTIVE: The patient is seen early this morning in room 566, bed 1. The patient is doing better. No fevers, no chills. No nausea. PHYSICAL EXAMINATION: VITAL SIGNS: On exam, temperature is 97, blood pressure is 150/80, respiratory rate 18. HEENT: Unremarkable. NECK: Supple. LUNGS: Have decreased breath sounds. HEART: Normal S1 and S2. ABDOMEN: Soft, nontender. LABORATORY DATA: Laboratory examination reveals a white count 13,800, hemoglobin of 10, platelets of 373. BUN of 15, creatinine of 1.0, procalcitonin 0.05. Serology is noted. Microbiology reveals the blood cultures, there are no growth. ASSESSMENT AND PLAN: A 57-year-old female with sepsis secondary to community-acquired pneumonia, history of hysterectomy, cholecystectomy, on day #3 of Rocephin and Zithromax, with negative blood cultures and negative procalcitonin. The patient is on Solu-Medrol, also on IV Zithromax and ceftriaxone. Maybe able to switch to p.o. Zithromax upon discharge. There is a mild increase in leukocytosis most likely secondary to the steroid effect. Matt Hernández MD
[2017-09-09] MEDS: MethylPREDNISolone 40 mg Vial IVP SCH ×2 (06:00→13:05)
[2017-09-09] MEDS: Pantoprazole 40 mg EC Tab PO SCH (06:00)
[2017-09-09] MEDS: Levalbuterol 1.25 MG/3 ML Inhal Soln UD IH SCH ×3 (07:19→20:55)
[2017-09-09] MEDS: cefTRIAXone 1 gm 1 GM/100 ML BAG IVPB SCH (09:10)
[2017-09-09] MEDS: Tiotropium 18 mcg Cap For Inhalation IH SCH (09:10)
[2017-09-09] MEDS: Enoxaparin 40 mg Syringe SC SCH (09:11)
[2017-09-09] MEDS: guaiFENesin-Codeine 100-10mg/5ml Syrup (5 ml) UD PO PRN (09:18)
[2017-09-09] MEDS: Azithromycin 500MG/NS 250ml 500 MG/250 ML BAG IVPB SCH (10:53)
[2017-09-09] MEDS ORDERED: MethylPREDNISolone 40 mg Vial IVP SCH (15:30)
--- NOTE | 2017-09-09 20:30 | PN ---
DATE: SUBJECTIVE: Patient is a 57-year-old, seen and examined, lying in bed. Seems to be comfortable, has less cough and congestion. No nausea, no vomiting, no diarrhea. PHYSICAL EXAMINATION: VITAL SIGNS: Patient is afebrile, pulse 80, respiration 20, blood pressure 148/98. LUNGS: Bilateral fair air flow, but has bilateral harsh rhonchi, diffuse, but definitely better than before. ABDOMEN: Soft, nontender. No rebound. No guarding. NEUROLOGIC: Patient is awake, alert, oriented, communicative. Able to ambulate. LABORATORY DATA: Her QuantiFERON test seems to be indeterminate. Echocardiogram is pending. ASSESSMENT: 1. Chronic obstructive pulmonary disease exacerbation. 2. Asthmatic bronchitis. 3. Bronchospasm. 4. Hypertension. PLAN: Since patient's bronchospasm has improved, we will cut down her steroid to 40 q. 12. I will order sputum for AFB. We will reevaluate patient. Abhi Islas MD
--- NOTE | 2017-09-10 00:07 | PN ---
DATE: SUBJECTIVE: The patient is seen in bed, in no acute distress, nontoxic. No fevers, no chills. The patient was seen early this morning in 566, bed 1. PHYSICAL EXAMINATION: VITAL SIGNS: On exam, temperature is 99, blood pressure is 140/80, respiratory rate of 18. HEENT: Unremarkable. NECK: Supple. LUNGS: Have decreased breath sounds. HEART: Normal S1 and S2. ABDOMEN: Soft, nontender. LABORATORY EXAMINATION: Reveals the patient to have white count of 13,800, hemoglobin of 10, and platelets of 373. Chemistries reveal a BUN of 16, creatinine of 1.0. Procalcitonin is 0.05. Serology is noted, with influenza is negative, and microbiology revels the blood cultures are negative. QuantiFERON is indeterminate. Review of orders reveals the patient to be on IV Zithromax and Solu-Medrol. Negative procalcitonin. CAT scan of the chest is reviewed. ASSESSMENT AND PLAN: This is a 57-year-old female who was seen early this morning in 566, bed 1, who was admitted with sepsis secondary to community-acquired pneumonia, history of hysterectomy and cholecystectomy, on day #4 of ceftriaxone and Zithromax, and a normal procalcitonin. We will change the Zithromax to p.o. and the ceftriaxone was discontinued by pharmacy. We will use Zithromax 250 mg p.o. We will also order an HIV test because of the patient's age. Matt Hernández MD
--- NOTE | 2017-09-10 03:21 | PN ---
DATE: PULMONARY PROGRESS NOTE REFERRING PHYSICIAN: Abhi Islas MD SUBJECTIVE: The patient is sitting at the side of the bed. Night was unremarkable. Feels better, but still having cough. No nausea, no vomiting, no diarrhea. No leg pain or leg swelling. OBJECTIVE: GENERAL: In no acute distress. VITAL SIGNS: Temperature is 99, heart rate is 80, respiratory rate is 18, blood pressure 148/98, pulse ox 98% on room air. HEENT: Moist mucous membrane. Crowded airway. NECK: Supple. No JVD. LUNGS: Scattered rhonchi. HEART: S1 and S2. ABDOMEN: Soft and nontender. No organomegaly. EXTREMITIES: No edema. NEUROLOGIC: Awake, alert, follows simple commands. MEDICATIONS: She is on albuterol Atrovent nebulizer q. 12 hours p.r.n., Ambien 10 mg at bedtime, Lovenox 40 mg daily, Protonix 40 mg daily, Robitussin with codeine 5 mL q. 4 hours p.r.n., Singulair 10 mg daily, Solu-Medrol 40 mg q. 12 hours, inhaled daily, Xopenex inhaled three times a day, Zithromax 250 mg daily. LABORATORY DATA: Shows no new lab is available since yesterday. Blood cultures been negative. She had an echocardiogram done, the report is still pending. IMPRESSION AND PLAN: Chronic obstructive lung disease, bilateral pulmonary infiltrate, there may be a component of sleep apnea syndrome, has a persistent symptom, clinically she is much more improved. Echocardiogram done, report is pending. Clinically I think we can discharge the patient tomorrow, starting prednisone 40 mg, taper off next 12 days, also may continue Zithromax p.o., inhaled bronchodilator. We will need outpatient pulmonary function test and also followup x-ray to assure the stability of pulmonary infiltrate. We will follow echocardiogram report as the outpatient. Thank you and we will follow with you. Delicia Pace MD
[2017-09-10] MEDS ORDERED: MethylPREDNISolone 40 mg Vial IVP SCH ×3 (06:00→18:06)
[2017-09-10] MEDS: Pantoprazole 40 mg EC Tab PO SCH (06:54)
[2017-09-10] MEDS: Levalbuterol 1.25 MG/3 ML Inhal Soln UD IH SCH ×3 (07:42→20:17)
--- NOTE | 2017-09-10 10:03 | CARD ---
APPROVED REPORT EXAM: Two-dimensional and M-mode echocardiogram with Doppler and color Doppler. Other Information Quality : AverageRhythm : INDICATION Dizziness and Vertigo 2D DIMENSIONS Left Atrium (2D)3.8 (1.6-4.0cm)IVSd1.0 (0.7-1.1cm) LVDd4.0 (3.9-5.9cm)PWd1.0 (0.7-1.1cm) LVDs2.5 (2.5-4.0cm)FS (%) 36.5 % LVEF (%)66.0 (>50%) M-Mode DIMENSIONS Aortic Root2.70 (2.2-3.7cm)Aortic Cusp Exc.1.60 (1.5-2.0cm) Aortic Valve AoV Peak Rijdsjnl628.0cm/s Mitral Valve MV E Anvcpftm42.6cm/sMV A Oybvxwxj26.4cm/sE/A ratio0.8 TDI Lateral E' Peak V10.20cm/sMedial E' Peak V5.56cm/sE/Lateral E'6.5 E/Medial E'12.0 Pulmonary Valve PV Peak Hkxuvkai29.8cm/sPV Peak Grad.4mmHg Tricuspid Valve TR Peak Yndtohlc442kk/sRAP [id number] Peak Gr.28mmHg [id number] LEFT VENTRICLE The left ventricle is normal size. There is normal left ventricular wall thickness. The left ventricular function is normal. The left ventricular ejection fraction is within the normal range. There is normal LV segmental wall motion. RIGHT VENTRICLE The right ventricle is normal size. ATRIA The left atrium size is normal. The right atrium size is normal. The interatrial septum is intact with no evidence for an atrial septal defect. AORTIC VALVE The aortic valve is normal in structure. MITRAL VALVE The mitral valve is normal in structure. Mitral regurgitation is trace. TRICUSPID VALVE The tricuspid valve is normal in structure. There is trace tricuspid regurgitation. PULMONIC VALVE The pulmonic valve is not well visualized. GREAT VESSELS The aortic root is normal in size. PERICARDIAL EFFUSION There is no pericardial effusion. <Conclusion> The left ventricle is normal size. There is normal left ventricular wall thickness. The left ventricular function is normal.
[2017-09-10] MEDS: Enoxaparin 40 mg Syringe SC SCH ×2 (10:55→10:57)
[2017-09-10] MEDS: Tiotropium 18 mcg Cap For Inhalation IH SCH (10:57)
[2017-09-10 23:14] VITALS: RESP 18
--- NOTE | 2017-09-10 23:46 | PN ---
DATE: SUBJECTIVE: The patient is 57 years old seen and examined, states she feels better. Still has cough and congestion, but definitely better than before. PHYSICAL EXAMINATION: VITAL SIGNS: She is afebrile, pulse 74, respirations 20, blood pressure 154/85. LUNGS: Bilateral fair air flow, has harsh rhonchi and crackles, but better than before. HEART: S1, S2 audible. ABDOMEN: Soft and nontender. No rebound, no guarding. NEUROLOGIC: She is awake, alert and oriented, able to communicate. LABORATORY DATA: Procalcitonin 0.05. QuantiFERON TB test is indeterminate. ASSESSMENT: 1. Chronic obstructive pulmonary disease exacerbation. 2. Bronchospasm. 3. Resolving bilateral pulmonary infiltrates. Echocardiogram done shows left ventricle normal in size with normal wall thickness, function is within normal range. Right ventricle is also normal size. PLAN: We will induce sputum and get 3 specimens for AFB, start to taper down her steroids. If patient remains stable, we will discharge her in a.m. Abhi Islas MD
--- NOTE | 2017-09-11 00:38 | PN ---
DATE: 09/10/2017 SUBJECTIVE: The patient is seen early this morning in R66. No fevers and no chills. PHYSICAL EXAMINATION: VITAL SIGNS: Temperature is 97, blood pressure is 140/80, respiratory rate of 16. HEENT: Examination of HEENT is unremarkable. NECK: Supple. LUNGS: Have decreased breath sounds. HEART: Normal S1 and S2. ABDOMEN: Soft, nontender. LABORATORY DATA: Laboratory examination reveals the patient's white count of 13,800, hemoglobin of 10, platelets of 373. BUN of 15, creatinine of 1.0, procalcitonin 0.05. Serology is noted and blood cultures are negative. ASSESSMENT AND PLAN: A 57-year-old female who was seen early this morning, admitted with sepsis secondary to community-acquired pneumonia, history of hysterectomy and cholecystectomy, day #5 of Zithromax, who was initially treated with ceftriaxone, currently on p.o. Zithromax day #5. I would complete short course. The patient is also on Solu-Medrol. Negative for calcitonin. Dr. Pace's note is reviewed from yesterday. Matt Hernández MD
--- NOTE | 2017-09-11 00:46 | PN ---
DATE: 09/10/2017 PULMONARY PROGRESS NOTE REFERRING PHYSICIAN: Dr. Islas. SUBJECTIVE: She is sitting at the side of the bed. Feels much better. Decreased cough. Decreased shortness of breath. No nausea, no vomiting, no diarrhea. No leg pain or leg swelling. OBJECTIVE: GENERAL: In no acute distress. VITAL SIGNS: Temperature is 98, heart rate is 74, respiratory rate is 20, blood pressure 154/85, pulse ox 99% on room air. HEENT: Moist mucous membrane. Crowded airway. NECK: Supple. No JVD. LUNGS: Has a fair airflow, prolonged expiratory phase. Crackles and rhonchi are better. HEART: S1 and S2. ABDOMEN: Soft and nontender. No organomegaly. EXTREMITIES: No edema. NEUROLOGIC: Awake, alert. Follows simple commands. MEDICATIONS: She is on DuoNeb q.2 hour p.r.n., Ambien 10 mg at bedtime, Lovenox 40 mg subcu daily, Protonix 40 mg daily, guaifenesin with codeine q. 4 hours p.r.n., Singulair 10 mg daily, Solu-Medrol 30 mg q. 12 hours, Spiriva capsule inhaled daily, Xopenex 1.25 mg three times a day, Zithromax 250 mg daily. LABORATORY DATA: Reviewed and noted no new lab is available since yesterday. TB gold test came back as indeterminate. Microbiology, blood culture has been negative. She had an echocardiogram done, which shows normal LV function with right ventricular systolic pressure of 38. IMPRESSION AND PLAN: Chronic obstructive lung disease; bilateral pulmonary infiltrate, which is improving; may have sleep apnea syndrome; TB gold test is indeterminate. Clinically she has improved a lot. We will cut down the Solu-Medrol. Continue inhaled bronchodilator, gastric and deep vein thrombosis prophylaxes. Thank you and we will follow with you. Delicia Pace MD
[2017-09-11] MEDS: Pantoprazole 40 mg EC Tab PO SCH (06:24)
[2017-09-11] MEDS: Levalbuterol 1.25 MG/3 ML Inhal Soln UD IH SCH ×2 (07:30→13:33)
[2017-09-11 08:02] VITALS: BP 138/80; PULSE 77; TEMP 98.2; O2SAT 98
[2017-09-11] MEDS: Enoxaparin 40 mg Syringe SC SCH (10:43)
[2017-09-11] MEDS: Tiotropium 18 mcg Cap For Inhalation IH SCH (10:43)
--- NOTE | 2017-09-11 20:48 | PN ---
DATE: 09/11/2017 PULMONARY PROGRESS NOTE REFERRING PHYSICIAN: Abhi Islas MD. SUBJECTIVE: She is sitting up in a chair, being discharged home today. Feels much better. Decreased cough. Decreased shortness of breath. No nausea, no vomiting, no diarrhea. No leg pain or leg swelling. PHYSICAL EXAMINATION: GENERAL: In no acute distress. VITAL SIGNS: Temperature is 98, heart rate is 77, respiratory rate is 18, blood pressure 138/80, pulse ox 98% on room air. HEENT: Moist mucous membrane. Crowded airway. Mallampati score is IV. NECK: Supple. No JVD. LUNGS: Have a prolonged expiratory phase. Wheezing has gone. No rhonchi. HEART: S1 and S2. ABDOMEN: Soft and nontender. No organomegaly. EXTREMITIES: There is no edema. NEUROLOGIC: Awake, alert. Follows simple commands. MEDICATIONS: Reviewed. No new change in medications reported since yesterday. LABORATORY DATA: Reviewed. No new lab is available since yesterday. Laboratory data shows blood culture being negative. IMPRESSION AND PLAN: Chronic obstructive lung disease, bilateral pulmonary infiltrates, may have sleep apnea syndrome, TB gold test is indeterminate. Clinically, she is much improved, being discharged home on tapered dose of steroids, antibiotics as per Infectious Disease. The patient needs pulmonary function tests, also needs sleep studies. Thank you and we will follow with you. Delicia Pace MD
--- NOTE | 2017-09-11 20:59 | PN ---
DATE: SUBJECTIVE: The patient was seen earlier today in 566, bed 1. The patient is in bed, in no acute distress, nontoxic. No fevers, and doing well. PHYSICAL EXAMINATION VITAL SIGNS: Temperature is 98, blood pressure is 130/80, respiratory rate of 18. HEENT: Unremarkable. NECK: Supple. LUNGS: Decreased breath sounds. HEART: Normal S1 and S2. ABDOMEN: Soft, nontender. LABORATORY DATA: Reveals a white count of 13,800 and a hemoglobin of 10; BUN of 15, creatinine of 1.0, procalcitonin 0.05. Blood cultures have no growth. ASSESSMENT AND PLAN: This is a 57-year-old female who was seen earlier this morning in 566, bed 1, who was admitted with sepsis secondary to community-acquired pneumonia, on p.o. Zithromax. Completed short course of p.o. Zithromax. Case discussed with PMD. Matt Hernández MD
--- NOTE | 2017-09-12 11:48 | DS ---
HOSPITAL COURSE: The patient is 57-year-old seen and examined, doing well. The patient was admitted because of harsh wheezing, shortness of breath, cough persistent with chest discomfort. The patient was admitted for COPD exacerbation, had CT scan done that showed bilateral scarring. No evidence of pneumonia; however, she was given antibiotics with IV steroids and nebulizer treatment, was also seen by bias cutting machine operator vertical who recommended PFTs as outpatient. The patient is doing well. The patient states she is exposed to people who are homeless so there was questionable TB, had QuantiFERON Gold test done that was equivocal and indeterminate, so we collected three specimen for AFB. The patient is doing well, is asymptomatic. PHYSICAL EXAMINATION GENERAL: On examination, she is awake and alert, able to communicate. VITAL SIGNS: She is afebrile, pulse 77, respirations 18, blood pressure 138/80. LUNGS: occasional expiratory rhonchi. HEART: S1 and S2 audible. ABDOMEN: Soft, nontender. No rebound, no guarding. NEUROLOGIC: The patient is awake, alert, oriented, communicative, ambulatory. ASSESSMENT AND PLAN 1. Chronic obstructive pulmonary disease exacerbation. 2. Bilateral lung scarring, it seems to be old granulomatous disease. 3. Hypertension. 4. Resolved bronchospasm. PLAN: The patient is being discharged home on Zithromax 250 daily for five more days, prednisone 20 mg twice a day and she will get nebulizer treatment and we will follow her AFB as outpatient. Abhi Islas MD
--- NOTE | 2017-09-14 11:40 | PQF SEPSIS ---
09/14/17 Dr. Islas, Sepsis is documented in ED notes, ID consult of 09/06, and progress notes of 09/07, 09/08, 09/09, 09/10, 09/11. You do not mention this on your summary. Do you agree, disagree, undetermined with sepsis for this patient? If you agree, was sepsis present on admission? Thank you. Clarification of your documentation is requested to better reflect the severity of illness and intensity of treatment of your patient. Indicators present [] Temp < 96.8 or > 100.4 [] WBC count > 12,000/mm3 or <000/mm3 or 10% immature neutrophils [] Heart Rate > 90 [] Respiratory Rate > 20 [] Fever or hypothermia [] Chills [] Positive blood cultures [] Hypotension [] Metabolic acidosis (Elevated lactate level, anion gap or reduced blood pH) [] Acute confusion /Altered Mental Status [] Shock [] Other: [] Location in the medical record that reflects the above clinical findings: [] Treatment Provided: [] PHYSICIAN'S RESPONSE Based on your medical judgment of the clinical indicators outlined above, are you treating this patient for a known or suspected: [] Sepsis / Septicemia Please specify organism if known [] [] SIRS (Systemic Inflammatory Response Syndrome) [] Severe Sepsis (Sepsis with Associated Organ Dysfunction) [] Fever of Unknown Origin [] Other, please indicate: [] [] If Unable to Determine, please check the box, sign and date. Present On Admission (POA) Indicator: [] Present at the time of admission [] Not present at the time of admission [] Clinically Undetermined In responding to this query, please exercise your independent professional judgment. The fact that a question is asked does not imply that any particular answer is desired or expected. Thank you for your clarification on this documentation. If you have any questions please call:[ ] * Thank you, [ ] nut chopper NEIDA
--- NOTE | 2017-09-15 13:57 | PQF SEPSIS ---
09/14/17 Dr. Islas, Sepsis is documented in ED notes, ID consult of 09/06, and progress notes of 09/07, 09/08, 09/09, 09/10, 09/11. You do not mention this on your summary. Do you agree, disagree, undetermined with sepsis for this patient? If you agree, was sepsis present on admission? Previous query form was signed only. Thank you. Clarification of your documentation is requested to better reflect the severity of illness and intensity of treatment of your patient. Indicators present [] Temp < 96.8 or > 100.4 [] WBC count > 12,000/mm3 or <000/mm3 or 10% immature neutrophils [] Heart Rate > 90 [] Respiratory Rate > 20 [] Fever or hypothermia [] Chills [] Positive blood cultures [] Hypotension [] Metabolic acidosis (Elevated lactate level, anion gap or reduced blood pH) [] Acute confusion /Altered Mental Status [] Shock [] Other: [] Location in the medical record that reflects the above clinical findings: [] Treatment Provided: [] PHYSICIAN'S RESPONSE Based on your medical judgment of the clinical indicators outlined above, are you treating this patient for a known or suspected: [] Sepsis / Septicemia Please specify organism if known [] [] SIRS (Systemic Inflammatory Response Syndrome) [] Severe Sepsis (Sepsis with Associated Organ Dysfunction) [] Fever of Unknown Origin [] Other, please indicate: [] [] If Unable to Determine, please check the box, sign and date. Present On Admission (POA) Indicator: [] Present at the time of admission [] Not present at the time of admission [] Clinically Undetermined In responding to this query, please exercise your independent professional judgment. The fact that a question is asked does not imply that any particular answer is desired or expected. Thank you for your clarification on this documentation. If you have any questions please call:[ ] * Thank you, [ ] finish rolls operator NEIDA
--- NOTE | 2017-09-17 12:11 | PQF SEPSIS ---
09/14/17 Dr. Islas, Sepsis is documented in ED notes, ID consult of 09/06, and progress notes of 09/07, 09/08, 09/09, 09/10, 09/11. You do not mention this on your summary. Do you agree, disagree, undetermined with sepsis for this patient? If you agree, was sepsis present on admission? (The first two query forms were signed only.) Thank you. Clarification of your documentation is requested to better reflect the severity of illness and intensity of treatment of your patient. Indicators present [] Temp < 96.8 or > 100.4 x[] WBC count > 12,000/mm3 or <000/mm3 or 10% immature neutrophils [] Heart Rate > 90 [x] Respiratory Rate > 20 [] Fever or hypothermia [] Chills [] Positive blood cultures [] Hypotension [] Metabolic acidosis (Elevated lactate level, anion gap or reduced blood pH) [] Acute confusion /Altered Mental Status [] Shock [] Other: [] Location in the medical record that reflects the above clinical findings: [] Treatment Provided: [] PHYSICIAN'S RESPONSE Based on your medical judgment of the clinical indicators outlined above, are you treating this patient for a known or suspected: [] Sepsis / Septicemia Please specify organism if known [] [] SIRS (Systemic Inflammatory Response Syndrome) [] Severe Sepsis (Sepsis with Associated Organ Dysfunction) [] Fever of Unknown Origin [] Other, please indicate: [] [x If Unable to Determine, please check the box, sign and date. Present On Admission (POA) Indicator: [] Present at the time of admission [] Not present at the time of admission [] Clinically Undetermined In responding to this query, please exercise your independent professional judgment. The fact that a question is asked does not imply that any particular answer is desired or expected. Thank you for your clarification on this documentation. If you have any questions please call:[ ] * Thank you, [ ] fisher NEIDA
== END 2017-09-11 14:59 | disposition home or self-care (01) | DRG 191 ==
LOC: ED 00:28 → ERH 03:16 → 5RNO 04:46
PROVIDERS: ADMIT Internal Medicine; ATTEND Internal Medicine
DX: J44.1 Chronic obstructive pulmonary disease with (acute) exacerbation (principal); J45.901 Unspecified asthma with (acute) exacerbation; J84.10 Pulmonary fibrosis, unspecified; T17.990A Other foreign object in respiratory tract, part unspecified in causing asphyxiation, initial encounter; K21.9 Gastro-esophageal reflux disease without esophagitis; J44.0 Chronic obstructive pulmonary disease with (acute) lower respiratory infection; J20.9 Acute bronchitis, unspecified; I10 Essential (primary) hypertension; K27.9 Peptic ulcer, site unspecified, unspecified as acute or chronic, without hemorrhage or perforation; K44.9 Diaphragmatic hernia without obstruction or gangrene; R09.02 Hypoxemia; T38.0X5A Adverse effect of glucocorticoids and synthetic analogues, initial encounter; Z59.0 Homelessness; Z87.11 Personal history of peptic ulcer disease; Z90.49 Acquired absence of other specified parts of digestive tract; Z90.710 Acquired absence of both cervix and uterus; F17.210 Nicotine dependence, cigarettes, uncomplicated; R40.2412 Glasgow coma scale score 13-15, at arrival to emergency department; R00.0 Tachycardia, unspecified; G47.30 Sleep apnea, unspecified